=== PATIENT | male | born 1985 | race Caucasian/White ===

== ENCOUNTER 2016-10-01 21:12 | Emergency (ER) | payer OTHER ==
[~2016-10-01] VITALS: Ht 175.3 cm; Wt 75.7 kg
[~2016-10-01 21:12] MED LIST: AUGMENTIN875 MG PO; MOTRIN600 MG PO; MOTRIN800 MG PO; NAPROSYN250 MG PO; NORCO 7.5/321 TABLET PO; RANITIDINE HCL75 MG PO; RISPERDAL2 MG PO; VIBRAMYCIN100 MG PO
[2016-10-02] MEDS ORDERED: ELIQUIS5 MG PO (00:32)
[2016-10-02 01:00] VITALS: BP 135/85
== END 2016-10-02 01:01 | disposition home or self-care (01) ==
LOC: RME 21:12 → EME 21:12 → RME 10-02 01:01
DX: I82.412 Acute embolism and thrombosis of left femoral vein (principal); I82.432 Acute embolism and thrombosis of left popliteal vein; I82.442 Acute embolism and thrombosis of left tibial vein; R06.02 Shortness of breath; F17.200 Nicotine dependence, unspecified, uncomplicated
CPT/HCPCS: 71275; 80048; 85025; 85610; 85730; 93971; 99281; 99284

== ENCOUNTER 2016-10-09 00:34 | Emergency (ER) | payer OTHER ==
[~2016-10-09] VITALS: Ht 175.3 cm; Wt 73.6 kg
[~2016-10-09 00:34] MED LIST changes: +ELIQUIS5 MG PO
[2016-10-09 00:53] VITALS: BP 109/76
== END 2016-10-09 02:50 | disposition left against medical advice (07) ==
LOC: EME 00:34
DX: I82.402 Acute embolism and thrombosis of unspecified deep veins of left lower extremity (principal); F10.99 Alcohol use, unspecified with unspecified alcohol-induced disorder; Z53.21 Procedure and treatment not carried out due to patient leaving prior to being seen by health care provider
CPT/HCPCS: 80048; 85025; 85610; 85730

== ENCOUNTER 2016-11-11 01:43 | Emergency (ER) | payer OTHER ==
[~2016-11-11] VITALS: Ht 175.3 cm; Wt 68.8 kg
[2016-11-11 02:30] VITALS: BP 137/97
== END 2016-11-11 02:48 | disposition left against medical advice (07) ==
LOC: EME → EDBD 01:43 → EME 01:43
DX: R06.02 Shortness of breath (principal); M79.89 Other specified soft tissue disorders; R53.1 Weakness; Z86.718 Personal history of other venous thrombosis and embolism; F17.200 Nicotine dependence, unspecified, uncomplicated
CPT/HCPCS: 80048; 84484; 85027; 85610; 85730; 99281; 99283

== ENCOUNTER 2017-02-16 20:21 | Emergency (ER) | payer OTHER ==
[~2017-02-16] VITALS: Ht 175.3 cm; Wt 74.3 kg
[2017-02-16 20:36] LABS: MCH 36.2 PG (29.0-34.0); MCV 100.7 FL (86-99); MEAN PLAT.VOLUME 11.3 uM^3 (9.0-12.4); PLATELET COUNT 148 K/uL (156-360); RBC DIS.WIDTH-CV 12.1 % (11.8-14.6); RBC DIS.WIDTH-SD 45.3 % (39-53); RED BLOOD COUNT 4.47 M/uL (4.00-5.50); WHITE BLOOD COUNT 6.6 K/uL (4.1-10.2)
[2017-02-16 20:48] LABS: CHLORIDE 111 mEq/L (99-109); POTASSIUM 3.8 mEq/L (3.7-5.4); SODIUM 145 mEq/L (136-147)
[2017-02-16 20:50] LABS: GLUCOSE 103 mg/dL (70-99)
[2017-02-16 20:52] LABS: ANION GAP 12 MEQ/L (2-14)
[2017-02-16 20:53] LABS: SERUM ETHYL ALCOHOL 227 mg/dL
[2017-02-16 20:54] LABS: GFR ESTIMATE (CALCULATED) > 59 mL/min/
[2017-02-16 20:55] LABS: UREA NITROGEN (BUN) 9 mg/dL (9-23)
[2017-02-16 21:05] LABS: AMPHETAMINE NEGATIVE (500 ng/mL); BARBITURATES NEGATIVE (200 ng/mL); BENZODIAZEPINES NEGATIVE (150 ng/mL); COCAINE NEGATIVE (150 ng/mL); INTERNAL CONTROLS VALID? YES; METHADONE NEGATIVE (200 ng/mL); METHAMPHETAMINE NEGATIVE (500 ng/mL); OPIATES (MORPHINE) NEGATIVE (100 ng/mL); OXYCODONE NEGATIVE (100 ng/mL); PHENCYCLIDINE NEGATIVE (25 ng/mL); PROPOXYPHENE NEGATIVE (300 ng/mL); THC CANNABINOIDS NEGATIVE (50 ng/mL); TRICYCLIC ANTIDEPRESSANTS NEGATIVE (300 ng/mL)
[2017-02-17 02:34] VITALS: BP 116/81
== END 2017-02-17 02:34 | disposition home or self-care (01) ==
LOC: EME 20:21
PROVIDERS: Emergency Medicine
DX: F10.129 Alcohol abuse with intoxication, unspecified (principal); F32.9 Major depressive disorder, single episode, unspecified; K21.9 Gastro-esophageal reflux disease without esophagitis; Z86.718 Personal history of other venous thrombosis and embolism; F17.200 Nicotine dependence, unspecified, uncomplicated
CPT/HCPCS: 80048; 85027; 90837; 99281; 99285; G0480

== ENCOUNTER 2017-08-29 19:43 | Emergency (ER) | payer OTHER ==
[~2017-08-29] VITALS: Ht 175.3 cm; Wt 87.5 kg
[2017-08-29 21:38] VITALS: BP 155/106
== END 2017-08-29 21:39 | disposition home or self-care (01) ==
LOC: EME 19:43
DX: F10.10 Alcohol abuse, uncomplicated (principal); Z04.6 Encounter for general psychiatric examination, requested by authority; Y90.9 Presence of alcohol in blood, level not specified; F17.200 Nicotine dependence, unspecified, uncomplicated; K21.9 Gastro-esophageal reflux disease without esophagitis; Z86.718 Personal history of other venous thrombosis and embolism
CPT/HCPCS: 99281; 99283